=== PATIENT | male | born 1970 | race Caucasian/White ===

== ENCOUNTER 2024-01-23 17:29 | Emergency (ER) | payer SELFPAY ==
[~2024-01-23] VITALS: Ht 167.6 cm; Wt 89.0 kg
[2024-01-23 17:33] VITALS: O2SAT 98
[2024-01-23] MEDS: MORPHINE SULFATE 2 MG/ML CPJ (NOT FOR IM USE) IV ONE ×2 (17:46→19:45)
[2024-01-23] MEDS: CEFAZOLIN 1000MG PREMIX 50 ML IV ONE (18:25)
[2024-01-23] MEDS: MORPHINE SULFATE 4 MG/ML CPJ (NOT FOR IM USE) IV SCH (18:25)
[2024-01-23] MEDS: TETANUS, DIPHTHERIA, PERTUSSIS VAC/PF 0.5ML (>10YR OLD) IM ONE (18:33)
[2024-01-23 20:32] LABS: BASOPHILS % 0.6 % (0.0-2.0); EOSINOPHILS % 0.7 % (0.0-5.0); HEMATOCRIT. 44.6 % (42.0-52.0); HEMOGLOBIN. 15.2 g/dL (14.0-18.0); LYMPHOCYTES % 12.1 % (20.0-50.0); MEAN CORPUSCULAR VOLUME 82.4 fL (80.0-94.0); MEAN PLATELET VOLUME 7.3 fl (7.4-10.4); MONOCYTES % 6.2 % (2.0-8.0); NEUTROPHILS % 80.4 % (40.0-76.0); PLATELET 378 x1000/uL (130-400); RED BLOOD CELL COUNT 5.42 mill/uL (4.7-6.1); RED CELL DISTRIBUTION WIDTH 13.6 % (11.6-14.6); WHITE BLOOD COUNT 15.3 x1000/uL (4.5-11.0)
[2024-01-23 20:49] LABS: PROTHROMBIN TIME 10.8 sec (9.6-11.0)
[2024-01-23 20:50] LABS: ALANINE AMINOTRANSFERASE 23 IU/L (10-49); ALBUMIN 4.4 g/dL (3.2-4.8); ASPARTATE AMINOTRANSFERASE 24 IU/L (<34); BILIRUBIN TOTAL 0.3 mg/dL (0.1-1.0); CALCIUM 8.8 mg/dL (8.7-10.4); CARBON DIOXIDE 25 mEq/L (21-32); CHLORIDE 108 mEq/L (98-107); CREATININE 0.9 mg/dL (0.6-1.3); GLUCOSE 106 mg/dL (70-105); PROTEIN TOTAL 7.2 g/dL (6.0-8.3); SODIUM 140 mEq/L (136-145); UREA NITROGEN BLOOD 12 mg/dL (9-23)
[2024-01-23 23:30] VITALS: BP 130/83; PULSE 102; RESP 12
[2024-01-23] MEDS ORDERED: CEPH500C2 MT (23:37)
== END 2024-01-23 23:58 | disposition home or self-care (01) ==
LOC: ER 17:29
DX: S81.032A Puncture wound without foreign body, left knee, initial encounter (principal); W34.09XA Accidental discharge from other specified firearms, initial encounter; Y93.89 Activity, other specified; Y92.89 Other specified places as the place of occurrence of the external cause; Y99.8 Other external cause status
CPT/HCPCS: 99291; 96365; 96375; 80053; 85025; 85610; 86850; 86900; 86901; 36415; 73552; 71045; 72170; 73560; 73590; 90715; 82803; 90471; 96376; J0690; J2270 ×2